=== PATIENT | male | born 1975 | race Caucasian/White ===

== ENCOUNTER 2017-09-20 16:59 | Emergency (ER) | payer SELFPAY ==
[2017-09-20] MEDS ORDERED: Lidocaine 1% 20 ML MDV ONE (17:09)
[2017-09-20] MEDS ORDERED: Triple Antibiotic Oint 1 GM Packet ONE (17:09)
== END 2017-09-20 17:28 | disposition home or self-care (01) ==
LOC: MADERS 16:59
DX: L72.3 Sebaceous cyst (principal)
CPT/HCPCS: 10060; J2001

== ENCOUNTER 2018-12-20 14:59 | Emergency (ER) | payer SELFPAY ==
--- NOTE | 2018-12-20 15:41 | RAD ---
Exam:3 views left shoulder HISTORY: Pain. COMPARISON: None FINDINGS: Glenohumeral joint spaces preserved. No fracture or dislocation. Visualized left ribs are u nremarkable. IMPRESSION: Unremarkable left shoulder radiograph series.
== END 2018-12-20 15:53 | disposition home or self-care (01) ==
LOC: MADERS 14:59
DX: S43.422A Sprain of left rotator cuff capsule, initial encounter (principal); X50.9XXA Other and unspecified overexertion or strenuous movements or postures, initial encounter

== ENCOUNTER 2024-12-01 18:59 | Emergency (ER) | payer SELFPAY ==
[2024-12-01] MEDS ORDERED: Ibuprofen 600 MG TAB ONE (19:20)
== END 2024-12-01 20:06 | disposition home or self-care (01) ==
LOC: MADERS 18:59
DX: S93.401A Sprain of unspecified ligament of right ankle, initial encounter (principal); I10 Essential (primary) hypertension; Z79.899 Other long term (current) drug therapy; X50.1XXA Overexertion from prolonged static or awkward postures, initial encounter
CPT/HCPCS: 99283